=== PATIENT | male | born 1965 | race Caucasian/White ===

== ENCOUNTER 2023-07-22 16:03 | Emergency (ER) | payer SELFPAY ==
[~2023-07-22] VITALS: Ht 175.3 cm; Wt 70.0 kg
[2023-07-22 16:15] VITALS: O2SAT 97
[2023-07-22 21:48] VITALS: BP 29/74; PULSE 89; RESP 6; TEMP 98.9
== END 2023-07-22 21:50 | disposition home or self-care (01) ==
LOC: ER 16:03
DX: F10.129 Alcohol abuse with intoxication, unspecified (principal); R51.9 Headache, unspecified; Y90.8 Blood alcohol level of 240 mg/100 ml or more
CPT/HCPCS: 70486; 82962; 99284